=== PATIENT | female | born 1960 | race Caucasian/White ===

== ENCOUNTER → 2018-07-25 | Outpatient (CLI) | payer SELFPAY | LOC: AMB 12:35 | PROVIDERS: ATTEND Nurse Practitioner | DX: M25.531 Pain in right wrist (principal); M25.572 Pain in left ankle and joints of left foot; F10.220 Alcohol dependence with intoxication, uncomplicated; W01.0XXA Fall on same level from slipping, tripping and stumbling without subsequent striking against object, initial encounter | CPT/HCPCS: A0425; A0427 ==